=== PATIENT | female | born 1995 ===

== ENCOUNTER 2017-03-27 09:06 | Emergency (ER) | payer MEDICAID, OTHER ==
[2017-03-27 09:21] VITALS: BP 118/68
--- NOTE | 2017-03-27 10:11 | UC ---
Jg Kline Auryana, scribed for Jeremías Hart MD on 03/27/17 at 1004 . Respiratory Complaint HPI - HPI Summary HPI Summary: 21 year old female comes in with asthma exacerbation and upper respiratory symptoms starting 2 days ago - saturday evening. She also has chest pain - lower mid sternal - states worse with inhalation/cough, wheezing, nasal congestion/ rhinorrhea, and non-productive cough but denies sore throat and calf pain or swelling- states that she has 2 jobs, is often on her feet, and is unsure if her general leg soreness is notable or not. No improvement with nebulizer treatments. Patient states she is on an IUD- no oral BC pills. Patient reports similar episodes years ago - Treatment with Advir. PMHx is asthma and drug abuse - clean 2.5 years. - History of Current Complaint Chief Complaint: UCRespiratory Stated Complaint: URI Time Seen by Provider: 03/27/17 09:53 Hx Obtained From: Patient Hx Last Menstrual Period: month ago, has an iud Onset/Duration: Gradual Onset, Lasting Days - 2 days ago- started saturday evening , Still Present Severity Initially: Mild Severity Currently: Mild Character: Cough: Nonproductive Aggravating Factors: Allergens Alleviating Factors: Nothing Associated Signs And Symptoms: Positive: Pleuritic Chest Pain, Wheezing, URI, Nasal Congestion - and rhinorrhea. Negative: Fever, Calf Pain, Calf Swelling Related History: Similar Episode/Dx as: - see HPI - Allergies/Home Medications Allergies/Adverse Reactions: Allergies Allergy/AdvReac Type Severity Reaction Status Date / Time No Known Allergies Allergy Verified 08/24/14 17:26 PMH/Surg Hx/FS Hx/Imm Hx - Additional Past Medical History Additional PMH: Drug abuse - clean 2.5 years Endocrine History Of: Denies: Diabetes, Thyroid Disease Cardiovascular History Of: Denies: Cardiac Disorders, Hypertension Respiratory History Of: Reports: Asthma Denies: COPD GI/ History Of: Denies: Ulcer Psychological History Of: Reports: Anxiety, Depression - Surgical History Surgical History: None - Family History Known Family History: Positive: Unknown - Social History Occupation: Employed Full-time Lives: Alone Alcohol Use: Rare Substance Use Type: None Smoking Status (MU): Never Smoked Tobacco - Immunization History Most Recent Influenza Vaccination: unknown Most Recent Tetanus Shot: unknown Most Recent Pneumonia Vaccination: unknown Review of Systems Constitutional: Negative Skin: Negative Eyes: Negative ENT: Nasal Discharge - and congestion Respiratory: Cough, Other - wheezing Cardiovascular: Chest Pain - lower mid sternal Gastrointestinal: Negative Genitourinary: Negative Motor: Negative Neurovascular: Negative Musculoskeletal: Negative Neurological: Negative Psychological: Negative All Other Systems Reviewed And Are Negative: Yes Physical Exam Triage Information Reviewed: Yes Appearance: Well-Nourished, Ill-Appearing - mild Vital Signs: Initial Vital Signs Temp 98.5 F 03/27/17 09:15 Pulse 98 03/27/17 09:15 Resp 20 03/27/17 09:15 BP 118/68 03/27/17 09:15 Pulse Ox 99 03/27/17 09:15 Vital Signs Reviewed: Yes Eyes: Positive: Conjunctiva Clear ENT: Positive: Pharynx normal, Nasal drainage, TMs normal Neck: Positive: Supple, Enlarged Nodes @ - anterior cervical lymphadenopathy Respiratory: Positive: Chest non-tender, Normal breath sounds, Respiratory distress - mild shortness of breath, Wheezing Cardiovascular: Positive: Tachycardia Bowel Sounds: Positive: Present Musculoskeletal: Positive: Strength Intact, ROM Intact Neurological: Positive: Alert Psychological: Positive: Age Appropriate Behavior UC Diagnostic Evaluation - Laboratory O2 Sat by Pulse Oximetry: 99 Respiratory Course/Dx - Course Course Of Treatment: DISCUSSED WITH PATIENT; TREATING FOR ASTHMA EXACERBATION/ BRONCHITIS AND DOING BLOOD WORK TO R/O PE. - Differential Dx/Diagnosis Provider Diagnoses: DYSPNEA, CHEST PAIN, ASTHMA EXACERBATION, BRONCHITIS Discharge - Discharge Plan Condition: Stable Disposition: HOME Prescriptions: Azithromyxin BRYON (NF) [Z-Bryon (Zithromax) 250 mg tabs #6] 2 tab PO .TODAY, THEN 1 DAILY #6 tab Fluticas/Salmet 230/21 HFA(NF) [Advair HFA 23O/21 (NF)] 1 puff INH BID #1 mdi predniSONE TAB* [Deltasone TAB*] 40 mg PO DAILY #10 tab Patient Education Materials: Chest Pain (ED), Asthma (ED), Acute Bronchitis (ED ), Dyspnea (ED) Referrals: Joseph Buckley MD [Primary Care Provider] - Additional Instructions: FOLLOW UP WITH YOUR DOCTOR. YOU HAVE LAB WORK PENDING TO INCLUDE A DDIMER. IF THE DDIMER IS POSITIVE, YOU WILL NEED TO HAVE A CT SCAN OF THE CHEST TO EVALUATE FOR PULMONARY EMBOLISM. GO THE EMERGENCY DEPARTMENT WITH ANY WORSENING OF YOUR CONDITION OR QUESTIONS OR CONCERNS. The documentation as recorded by the Jg lange Auryana accurately reflects the service I personally performed and the decisions made by me, Jeremías Hart MD.
[2017-03-27 13:11] LABS: Hematocrit 40 % (35-47); Hemoglobin 13.2 g/dl (12.0-16.0); Mean Corpuscular HGB Conc 33 g/dl (31-36); Mean Corpuscular Hemoglobin 30 pg (27-31); Mean Corpuscular Volume 90 fL (80-97); Mean Platelet Volume 9 um3 (7.4-10.4); Red Blood Count 4.43 10^6/ul (4.0-5.4); Red Cell Distribution Width 13 % (10.5-15); White Blood Count 6.1 10^3/ul (3.5-10.8)
[2017-03-27 13:28] LABS: Albumin 4.2 g/dL (3.2-5.2); BUN/Creatinine Ratio 11.2 (8-20); Calcium 9.2 mg/dL (8.6-10.3); EGFR African American 101.1 (>60); EGFR Non-African American 78.6 (>60); Globulin 2.8 g/dL (2-4); Potassium 4.1 mmol/L (3.5-5.0); Total Bilirubin 0.7 mg/dL (0.2-1.0)
== END 2017-03-27 10:13 | disposition home or self-care (01) ==
LOC: UCEAST 09:06
DX: J45.901 Unspecified asthma with (acute) exacerbation (principal); R07.89 Other chest pain; F41.8 Other specified anxiety disorders
CPT/HCPCS: 36415; 80053; 85025; 85379; 99212; G0463